=== PATIENT | female | born 1960 | race Caucasian/White ===

== ENCOUNTER → 2023-11-17 06:23 | Day surgery (SDC) | payer BC, SELFPAY | LOC: GI 06:23 | PROVIDERS: ATTENDING PHYSICIAN Internal Medicine Gastroenterology; FAMILY PHYSICIAN Internal Medicine | DX: Z12.11 Encounter for screening for malignant neoplasm of colon (principal); K59.00 Constipation, unspecified; K64.8 Other hemorrhoids; K57.30 Diverticulosis of large intestine without perforation or abscess without bleeding | CPT/HCPCS: G0121 ==

== ENCOUNTER → 2024-02-10 14:16 | Outpatient (REF) | payer SELFPAY | LOC: RAD 14:16 | PROVIDERS: ATTENDING PHYSICIAN Internal Medicine | DX: E78.00 Pure hypercholesterolemia, unspecified (principal) | CPT/HCPCS: 75571 ==

== ENCOUNTER 2024-08-02 00:59 | Emergency (ER) | payer BC, SELFPAY ==
[2024-08-02 01:01] VITALS: BP 182/84
[2024-08-02 01:22] VITALS: BMI 22.2
--- NOTE | 2024-08-02 02:16 | ED.GENMED ---
History of Present Illness
<MARTELL Ernandez - Last Filed: 08/02/24 03:06>
General
Chief Complaint: Skin Problem
Source: patient
Exam Limitations: none
Time Seen by Provider: 08/02/24 01:26
Nursing documentation reviewed up to this point in time: agreed with
History of Present Illness
History of Present Illness:
Patient is a 64yo F who was recently tx w/ Keflex x5days for paronychia on R thumb presents to ED w/ increased pain, swelling, and redness. She reports abx helped some but she worsened today. Rates pain / and states it prevents her some
sleeping. Denies any new trauma since abx. Reports pain radiates up arm but redness/swelling does not. States tip of thumb is tingling x1day.
Past History
<MARTELL Ernandez - Last Filed: 08/02/24 03:06>
Past History
ED Past Medical History: HTN and Psychiatric (Anxiety)
Social History
Tobacco: Non-smoker
Review of Systems
<MARTELL Ernandez - Last Filed: 08/02/24 03:06>
Review of Systems
Constitutional: Denies fever, fatigue or chills
Respiratory: Denies cough or trouble breathing
Cardiac: Denies chest pain or palpitations
Musculoskeletal: Denies joint pain
Neurological: Reports numbness
Psychiatric: Reports anxiety
Phy Exam
<MARTELL Ernandez - Last Filed: 08/02/24 03:06>
General Physical Exam
General Presentation: moderate distress
General age: appears stated age
General Skin: warm and dry
General Habitus: normal
General Mental: anxious
Cardiovascular Exam
Cardiovascular Exam: regular rate/rhythm, no gallop and no murmur
Neurological Exam
Neurological Exam: alert, oriented x3, no motor deficits, no sensory deficits and speech normal
Skin Exam
Skin Exam: other (R thumb lateral nail boarder: 0.5 cm of brown discoloration surrounded by line of yellow discoloration. Redness, warmth, swelling, induration. Very TTP. )
Course
<ST OmaPA - Last Filed: 08/02/24 03:06>
Orders/Labs/Results
Orders:
Orders
08/02/24 02:04
Cephalexin Monohydrate [Keflex] 1,000 mg PO NOW STA
Ketorolac [Toradol] 60 mg IM NOW STA
08/02/24 02:55
Wound Culture [Wound/Abscess/Other Culture] Urgent
MICHELL Source: Abscess
Specimen Description:
Date Specimen was Collected: 08/02/24
Time Specimen was Collected: 02:53
Comment: right thumb paronychia
Vital Signs
Initial and Last Documented VS:
Initial Vital Signs
Temp Pulse Resp BP Pulse Ox
98.8 F 54 22 182/84 100
08/02/24 01:01 08/02/24 01:01 08/02/24 01:01 08/02/24 01:01 08/02/24 01:01
Last Documented Vital Signs
Temp Pulse Resp BP Pulse Ox
98.8 F 54 22 182/84 100
08/02/24 01:01 08/02/24 01:01 08/02/24 01:01 08/02/24 01:01 08/02/24 01:01
<Lola Mcdonald DO - Last Filed: 08/02/24 03:09>
Orders/Labs/Results
Orders:
Orders
08/02/24 02:04
Cephalexin Monohydrate [Keflex] 1,000 mg PO NOW STA
Ketorolac [Toradol] 60 mg IM NOW STA
08/02/24 02:55
Wound Culture [Wound/Abscess/Other Culture] Urgent
MICHELL Source: Abscess
Specimen Description:
Date Specimen was Collected: 08/02/24
Time Specimen was Collected: 02:53
Comment: right thumb paronychia
Vital Signs
Initial and Last Documented VS:
Initial Vital Signs
Temp Pulse Resp BP Pulse Ox
98.8 F 54 22 182/84 100
08/02/24 01:01 08/02/24 01:01 08/02/24 01:01 08/02/24 01:01 08/02/24 01:01
Last Documented Vital Signs
Temp Pulse Resp BP Pulse Ox
98.8 F 54 22 182/84 100
08/02/24 01:01 08/02/24 01:01 08/02/24 01:01 08/02/24 01:01 08/02/24 01:01
Procedures
<MARTELL Ernandez - Last Filed: 08/02/24 03:06>
Digital Block
Location of injection for digital block: base of digit
Indiction for Digital Block: other (anesthesia for I&D)
Was sensory exam normal prior to exam?: not tested
Type of anesthesia: 1% Lidocaine w/o EPI
Complications: none- good anesthesia
Incision/Drainage/Joint Aspiration
Right Medial Dorsal Thumb:
Anethesia: 1% Lidocaine
Preparation: cleaned with Betadine
Type of procedure: incise and drain
Nature of site: abscess
Description of abscess: less than 3cm
How much fluid was obtained?: small amount
Fluid description: purulent
Treatment: left open for drainage and antibiotics started
<MARTELL Ernandez - Last Filed: 08/02/24 03:06>
*Critical Care Note
Total Time (30-74mins, 75-104mins- exclusive of procedures): Not Applicable
<Lola Mcdonald DO - Last Filed: 08/02/24 03:09>
*Pulse Oximetry
Patient hypoxic: no
*Critical Care Note
Total Time (30-74mins, 75-104mins- exclusive of procedures): Not Applicable
ED Attending Note
<MARTELL Ernandez - Last Filed: 08/02/24 03:06>
-
Portions of this chart may have been created with voice recognition software.� Occasional wrong word or��sound alike� substitutions may have occurred due to the inherent limitations of voice recognition software.
<Lola Mcdonald DO - Last Filed: 08/02/24 03:09>
ED Attending Note
Patient seen and examined by attending physician: Yes
I performed the substantive portion of visit, reviewed & personally made and approve the management plan that is documented in note by myself or ALCON.: Yes
ED Attending Note:
This is a 64-year-old woman who has history of hypertension, history of PAF not maintained on anticoagulant who presents with 2-week history of right thumb paronychia that initially began began 2 weeks ago when she inadvertently broke her nail and
then used a nail file close to the distal medial nail edge. She was evaluated by her PCP and placed on 5-day course of Keflex which completed 5 days ago. She admits that while on the antibiotics the redness and swelling markedly improved, near
resolved but since stopping the antibiotics she has had return of redness and swelling much more so over the past 24 hours. She complains of throbbing sensation to her thumb primarily along the medial nail edge. She has had no drainage. No fever
nor chills.
She took a dose of gabapentin as well as Soma tonight without relief.
No history of similar episodes in the past. No history of diabetes nor immunocompromise.
She is right-hand dominant.
GENERAL: 64-year-old woman appears her stated age, awake and alert, mildly anxious but easily communicative. Accompanied by a neighbor/friend.
EYE: anicteric
NECK: nontender
ENT: oral mucosa is moist.
CARDIAC: Regular rate and rhythm. no murmur.
LUNGS: no acute respiratory distress
ABDOMEN: Soft, nondistended, without focal tenderness
NEUROLOGICAL: Alert and oriented x3, no focal neuro deficits. Gait is manuel and steady.
SKIN: Warm and dry, normal color, good turgor.
MUSCULOSKELETAL: The medial aspect of the right thumb nail has focal area of crust with adjacent fluctuant area of white pale yellow skin that is surrounded with moderate erythema. Mild erythema and soft tissue swelling extends to the anterior
aspect of the thumb. There is exquisite tenderness along the medial nail edge but no tenderness to the anterior nor lateral aspect of the thumb. There is no lymphangitis, no joint effusion. Sensation and strength intact. Minimally restricted
flexion at IP joint related to soft tissue swelling distally. Rapid capillary refill.
PSYCH: Normal and appropriate interaction.
Patient presents with paronychia medial aspect of the right thumbnail. Although there is some erythema and soft tissue swelling to the anterior distal thumb this area is soft without appreciable tenderness. Nothing to suggest felon.
There is no lymphangitis nor definitive evidence of cellulitis.
As paronychia was improving with Keflex would recommend resumption of Keflex for a 7 to 10-day course and will add ibuprofen for pain.
Although patient notes allergic reaction to Aleve she can take ibuprofen without adverse effect. Similarly reported mild rash related to Ceftin but has taken Keflex without adverse effect.
Will plan for digital block and incision of paronychia.
08/02/2024 0301 AM
Digital block by PA student. Excellent anesthesia.
Incision and drainage of paronychia by PA student under my direct supervision. Initial drainage of moderate amount of purulent material then blood-tinged drainage.
Patient tolerated procedure well.
Wound culture obtained.
Bulky dressing applied.
Will discharge to home with 10-day course of Keflex as well as prescription for ibuprofen.
Recommend warm compresses and prompt follow-up with PCP for recheck.
Discharge Plan
Departure
Patient Disposition: Home (Routine Discharge)
Date of Disposition: 08/02/24
Time of Disposition: 03:04
Patient with high blood pressure during this ER visit?: No
Condition: Good
Discharge Problem:
Acute paronychia of right thumb
Instructions: Paronychia ED
Prescriptions:
New
cephalexin 500 mg capsule
1,000 mg PO BID 10 Days Qty: 40 0RF
ibuprofen 600 mg tablet
600 mg PO QID PRN (Reason: fever or pain) Qty: 20 0RF
No Action
gabapentin 300 MG capsule
300 mg PO HS
gabapentin 100 MG capsule
100 mg PO BID
diazepam 5 MG tablet
5 mg PO DAILY
carisoprodol [Soma] 250 MG tablet
250 mg PO DAILY
nebivolol [Bystolic] 5 MG tablet
5 mg PO DAILY
loratadine 10 MG tablet
10 mg PO DAILY
valacyclovir 500 MG tablet
1,000 mg PO TID Qty: 19 0RF
pantoprazole 40 MG tablet,delayed release (DR/EC)
40 mg PO DAILY Qty: 30 0RF
apixaban [Eliquis] 5 MG tablet
5 mg PO BID Qty: 60 0RF
Referrals:
Nicanor Lucas MD [Family Provider] - Call in 1-3 days for appt
Interventions
Interventions:
*Risk Screen - Suicide Last Done: 08/02/24 01:01
*General Assessment Last Done: 08/02/24 01:22
*Neglect/Abuse Screening Last Done: 08/02/24 01:01
ED- Fall Risk Assessment Last Done: 08/02/24 01:22
*ED COVID-19 Vaccine History Last Done: 08/02/24 01:22
ED-Skin Assessment Last Done: 08/02/24 01:22
Discharge Date and Time
Print Language: [place]
[2024-08-02] MEDS: KEFLEX 1000 MG PO (02:33)
[2024-08-02] MEDS: TORADOL 60 MG IM (02:33)
== END 2024-08-02 03:24 | disposition home or self-care (01) ==
LOC: EMR 00:59
PROVIDERS: EMERGENCY PHYSICIAN Emergency Medicine; FAMILY PHYSICIAN Internal Medicine
DX: L03.011 Cellulitis of right finger (principal); I10 Essential (primary) hypertension
CPT/HCPCS: 26010; 96372; 99284; 87070; 87205